=== PATIENT | female | born 1975 | race Two or more races ===

== ENCOUNTER 2018-05-09 13:54 | Outpatient (CLI) | payer OTHER | END 2018-05-14 14:08 | disposition home or self-care (01) | LOC: RAD 13:54 | DX: K59.09 Other constipation (principal) ==

== ENCOUNTER 2022-12-21 09:35 | Day surgery (SDC) | payer OTHER | END 2022-12-21 16:35 | disposition home or self-care (01) | LOC: AMB-ENDOS 09:35 | PROVIDERS: ATTEND Colon & Rectal Surgery | DX: K62.5 Hemorrhage of anus and rectum (principal); K64.8 Other hemorrhoids; R19.4 Change in bowel habit; Z20.822 Contact with and (suspected) exposure to COVID-19 ==

== ENCOUNTER 2023-09-11 09:31 | Day surgery (SDC) | payer OTHER ==
[~2023-09-11] VITALS: Ht 170.2 cm; Wt 95.7 kg
[~2023-09-11 09:31] MED LIST: PARLODEL2.5 MG PO
[2023-09-11] MEDS ORDERED: POVIDONE-IODINE 118 ML BOTT TOP ONE ×2 (15:17→18:00)
[2023-09-11] MEDS ORDERED: SUGAMMADEX SODIUM 200 MG/2 ML VIAL IV ONE ×2 (16:54→18:00)
[2023-09-11] MEDS ORDERED: NEURONTIN300 MG PO (17:09)
[2023-09-11] MEDS ORDERED: IBU800 MG PO (17:09)
[2023-09-11] MEDS ORDERED: ONDANSETRON HCL 2 MG/ML VIAL ONE (19:51)
== END 2023-09-11 20:25 | disposition home or self-care (01) ==
LOC: CIR.AMB 09:31
PROVIDERS: ATTEND Obstetrics & Gynecology Gynecology
DX: N72 Inflammatory disease of cervix uteri (principal); N92.1 Excessive and frequent menstruation with irregular cycle; R10.2 Pelvic and perineal pain